=== PATIENT | male | born 1950 | race Two or more races ===

== ENCOUNTER 2022-08-01 10:00 | Inpatient (IN) | payer OTHER ==
[~2022-08-01] VITALS: Ht 175.3 cm; Wt 83.0 kg
[2022-08-01] MEDS ORDERED: TRELEGY ELLIPT1 EACH IH (13:06)
[2022-08-01] MEDS ORDERED: LISINOPRIL5 MG PO (13:06)
[2022-08-01] MEDS ORDERED: METFORMIN HCL500 M3 PO (13:06)
[2022-08-07] MEDS ORDERED: LISINOPRIL2.5 MG (08:08)
[2022-08-07] MEDS ORDERED: FLONASE16 GM (08:08)
[2022-08-07] MEDS ORDERED: TRELEGY ELLIPT1 EACH (08:08)
[2022-08-11] MEDS ORDERED: PEPCID AC20 MG PO (09:27)
[2022-08-11] MEDS ORDERED: INTESTINEX680 M1 PO (09:27)
[2022-08-11] MEDS ORDERED: DICY20TA PO (09:27)
[2022-08-11] MEDS ORDERED: TRAM1TAB98 PO (09:27)
== END 2022-08-11 21:58 | disposition home or self-care (01) | DRG 331 ==
LOC: O/R 08-07 05:16 → SURH 08-07 05:16
PROVIDERS: ADMIT Colon & Rectal Surgery; ATTEND Colon & Rectal Surgery
PROC: 0DBP4ZZ Excision of Rectum, Percutaneous Endoscopic Approach (ICD-10-PCS; 2022-08-07)
PROC: 07BB4ZZ Excision of Mesenteric Lymphatic, Percutaneous Endoscopic Approach (ICD-10-PCS; 2022-08-07)
PROC: 0DJD8ZZ Inspection of Lower Intestinal Tract, Via Natural or Artificial Opening Endoscopic (ICD-10-PCS; 2022-08-07)
PROC: 0DTN4ZZ Resection of Sigmoid Colon, Percutaneous Endoscopic Approach (ICD-10-PCS; principal; 2022-08-07 13:15)
DX: D12.5 Benign neoplasm of sigmoid colon (principal); K57.30 Diverticulosis of large intestine without perforation or abscess without bleeding; R59.0 Localized enlarged lymph nodes; K66.0 Peritoneal adhesions (postprocedural) (postinfection); I10 Essential (primary) hypertension; Z20.822 Contact with and (suspected) exposure to COVID-19